=== PATIENT | male | born 1945 | race Two or more races ===

== ENCOUNTER 2021-03-14 18:58 | Emergency (ER) | payer SELFPAY ==
--- NOTE | 2021-03-14 22:00 | NUR ---
Patient was just called at this time to be triaged due to no beds in the ER and Hallway full and only 2nurses in the ER. Patient however was not present in the [facility] room or outside of ER.
--- NOTE | 2021-03-14 22:30 | NUR ---
Called patient to be triaged but patient was not present in the [facility] room or outside of ER.
--- NOTE | 2021-03-14 23:00 | NUR ---
PATIENT WAS NOT TRIAGED OR SEEN BY ERMD.
== END 2021-03-14 23:00 | disposition left against medical advice (07) ==
LOC: ER 19:04
DX: Z53.21 Procedure and treatment not carried out due to patient leaving prior to being seen by health care provider (principal)

== ENCOUNTER 2021-03-16 16:00 | Emergency (ER) | payer BC, OTHER ==
[~2021-03-16] VITALS: Ht 172.7 cm; Wt 74.8 kg
[2021-03-16] MEDS: IV NORMAL SALINE 1000 ML BAG IV ONE (16:44)
[2021-03-16 16:47] LABS: MEAN CORPUSCULAR VOLUME 89.7 fL (73.0-96.2); PLATELET COUNT (AUTO) 171 K/uL (152-348)
[2021-03-16] MEDS: PANTOPRAZOLE SODIUM 40 MG VIAL IV ONE (16:51)
[2021-03-16] MEDS ORDERED: PANTOPRAZOLE SODIUM 40 MG VIAL ONE (16:54)
[2021-03-16 17:06] LABS: BILIRUBIN,DIRECT 0.1 mg/dL (0.0-0.2); BILIRUBIN,TOTAL 0.4 mg/dL (0.2-1.0); TOTAL PROTEIN, SERUM 7.5 g/dL (6.4-8.2)
--- NOTE | 2021-03-16 19:05 | NUR ---
RECEIVED REPORT FROM ISAURA ORONA. PT IS AWAKE IN BED ASLEEP RESTING COMFORTABLY, NO SOB OR LABORED BREATHING.
--- NOTE | 2021-03-16 19:25 | NUR ---
SPOKE WITH , CUAUHTEMOC, AND PROVIDED UPDATES.
[2021-03-16] MEDS ORDERED: IV NS 1000 ML 1,000 ML IV PRN (20:45)
[2021-03-16] MEDS ORDERED: MAGNESIUM HYDROXIDE 30 ML LIQUID UDC PO PRN (20:45)
[2021-03-16] MEDS ORDERED: ACETAMINOPHEN 325 MG TABLET PO PRN (20:45)
[2021-03-16] MEDS ORDERED: ONDANSETRON 4 MG/2 ML VIAL IV PRN (20:45)
--- NOTE | 2021-03-16 21:39 | NUR ---
PT AMBULATED TO RESTROOM, STEADY GAIT. DENIES ANY PAIN/DISCOMFORT.
--- NOTE | 2021-03-16 21:55 | NUR ---
Patient does not wish to proceed with medical care recommended by Dr. French and Dr. Garcia. Patient given information related to possible complications, up to and including , which could occur as a result of leaving the hospital at this time. Patient verbalizes understanding of risks involved due to leaving against medical advice. Patient has signed AMA form. Steady gait. No SOB or labored breathing, afebrile. Denies any pain/discomfort. A/O x4.
[2021-03-16 22:23] VITALS: BP 122/76
== END 2021-03-16 22:00 | disposition left against medical advice (07) ==
LOC: ER 16:02
DX: U07.1 COVID-19 (principal); R55 Syncope and collapse; E87.1 Hypo-osmolality and hyponatremia
CPT/HCPCS: 36415; 70450; 71045; 72100; 80048; 80076; 84145; 84484; 85025; 85379; 85730; 86140; 86850; 86900; 86901; 87426; 93005; 96361; 96374; 99285; C9113; 70030-TC; A4663; J7030

== ENCOUNTER 2021-05-26 08:39 | Emergency (ER) | payer OTHER ==
[~2021-05-26] VITALS: Ht 165.1 cm; Wt 72.6 kg
--- NOTE | 2021-05-26 09:10 | NUR ---
Dr Guaman at the bedside for eval.
[2021-05-26] MEDS ORDERED: DAPA1TAB4 PO (09:14)
[2021-05-26] MEDS ORDERED: DIPH-530 PO (09:14)
[2021-05-26] MEDS ORDERED: TRIA15CR2 TP (09:14)
[2021-05-26] MEDS ORDERED: METFORMIN HCL 500 MG TABLET PO ONE (09:15)
[2021-05-26] MEDS ORDERED: METFORMIN HCL 500 MG TABLET ONE (09:18)
[2021-05-26] MEDS ORDERED: CEPH500C2 PO (09:22)
--- NOTE | 2021-05-26 09:30 | NUR ---
Patient discharged to home in stable condition. Written and verbal after care instructions given. Patient verbalizes understanding of instructions. Stressed follow up or return to ER for worsening s/s.
[2021-05-26 09:31] VITALS: BP 143/74
== END 2021-05-26 09:30 | disposition home or self-care (01) ==
LOC: ER 08:39
DX: L40.9 Psoriasis, unspecified (principal); Z76.0 Encounter for issue of repeat prescription; E11.9 Type 2 diabetes mellitus without complications; I10 Essential (primary) hypertension; Z91.14 Patient's other noncompliance with medication regimen; F17.200 Nicotine dependence, unspecified, uncomplicated
CPT/HCPCS: 93005; A4663

== ENCOUNTER 2021-06-07 09:04 | Emergency (ER) | payer SELFPAY ==
[~2021-06-07 09:04] MED LIST: CEPH500C2 PO; DAPA1TAB4 PO; DIPH-530 PO; TRIA15CR2 TP
--- NOTE | 2021-06-07 09:08 | NUR ---
called pt. not in the waitingroom or outside
== END 2021-06-07 09:08 | disposition left against medical advice (07) ==
LOC: ER 09:04
DX: Z53.21 Procedure and treatment not carried out due to patient leaving prior to being seen by health care provider (principal)

== ENCOUNTER 2021-07-10 00:45 | Emergency (ER) | payer BC ==
[~2021-07-10] VITALS: Ht 165.1 cm; Wt 72.6 kg
--- NOTE | 2021-07-10 00:45 | NUR ---
Dr. Maradiaga at bedside for MSE
--- NOTE | 2021-07-10 01:03 | NUR ---
Patient discharged to home in stable condition. Written and verbal after care instructions given. Patient verbalizes understanding of instructions. Stressed follow up or return to ER for worsening s/s. No distress noted and no changes in LOC during visit.
[2021-07-10 01:06] VITALS: BP 125/70
== END 2021-07-10 01:07 | disposition home or self-care (01) ==
LOC: ER 00:48
DX: K12.0 Recurrent oral aphthae (principal); E11.9 Type 2 diabetes mellitus without complications; L40.9 Psoriasis, unspecified; Z79.84 Long term (current) use of oral hypoglycemic drugs; Z79.899 Other long term (current) drug therapy
CPT/HCPCS: A4663